=== PATIENT | female | born 1945 | race African-American/Black ===

== ENCOUNTER → 2021-06-04 | Outpatient (CLI) | payer MEDICARE ==
[2019-09-29 20:50] VITALS: BP 154/66
[~2021-06-04] MED LIST: AMLO-186 PO; AMLO-187 PO; BENA40TA3 PO; CETI10TA16 PO; ENOX100D3 SQ; FAMO20TA5 PO; GABA300C18 PO; IBUP-1027 PO; IBUP-1060 PO; INSU100V8 SQ; METF10007 PO; MONT10TA49 PO; ORPH100T PO; PRAV20TA2 PO; TIZA2CAP PO; WARF2TAB96 PO
--- NOTE | 2021-06-06 10:12 | CARD ---
MR#: [id number] Date of Study: 06/04/2021 Ordering Physician: JOHN NASH, Referring Physician: JOHN NASH, Tech: Arnold Hernandez [facility] APPROVED REPORT EXAM: Two-dimensional and M-mode echocardiogram with Doppler and color Doppler. Other Information Quality : FairHR: 73bpm Rhythm : NSR INDICATION Murmur RISK FACTORS Previous DVT and PE (Remote) 2D DIMENSIONS Left Atrium(2D)4.2 (1.6-4.0cm)IVSd1.3 (0.7-1.1cm) Aortic Root(2D)2.6 (2.0-3.7cm)LVDd4.2 (3.9-5.9cm) LVOT Diameter2.1 (1.8-2.4cm)PWd1.3 (0.7-1.1cm) LVDs2.3 (2.5-4.0cm)FS (%) 45.2 % SV59.7 mlLVEF(%)76.9 (>50%) Aortic Valve AoV Peak Avinash.180.2cm/sAoV VTI30.7cm AO Peak GR.13.0mmHgLVOT Peak Avinash.125.3cm/s AO Mean GR.6mmHgAVA (VMAX)2.43cm2 Mitral Valve MV E Cwkcpqna40.7cm/sMV E Peak Gr.5mmHg MV DECEL [id number] A Dxwxzxnk770.4cm/s MV E Mean Gr.1mmHgE/A Ratio0.6 Pulmonary Valve PV Peak Kdfzhxjd263.1cm/s Tricuspid Valve TR P. Evzdgiur584dr/sTR Peak Gr.32mmHg Pulmonary Vein S1 Mydbiccf88.6cm/sD2 Myyiptyx22.8cm/s LEFT VENTRICLE The left ventricle is normal size. There is mild concentric left ventricular hypertrophy. The left ve ntricular systolic function is normal and the ejection fraction is within normal range. EF 55% There is normal LV segmental wall motion. Transmitral Doppler flow pattern is Grade I-abnormal relaxation p attern. No left ventricle thrombus noted on this study. There is no ventricular septal defect visuali zed. There is no left ventricular aneurysm. There is no mass noted in the left ventricle. RIGHT VENTRICLE The right ventricle is normal size. There is normal right ventricular wall thickness. The right ventr icular systolic function is normal. ATRIA The left atrium is borderline dilated. The right atrium size is normal. The interatrial septum is int act with no evidence for an atrial septal defect or patent foramen ovale as noted on 2-D or Doppler i maging. AORTIC VALVE The aortic valve is normal in structure and function. Doppler and Color Flow revealed no significant aortic regurgitation. There is no significant aortic valvular stenosis. There is no aortic valvular v egetation. MITRAL VALVE The mitral valve is normal in structure and function. There is no evidence of mitral valve prolapse. There is no mitral valve stenosis. Doppler and Color Flow revealed no mitral valve regurgitation note d. TRICUSPID VALVE The tricuspid valve is normal in structure and function. Doppler and Color Flow revealed mild tricusp id regurgitation. The PA pressure was estimated at 37 mmHg. There is no tricuspid valve prolapse or v egetation. There is no tricuspid valve stenosis. PULMONIC VALVE Doppler and Color Flow revealed no pulmonic valvular regurgitation. There is no pulmonic valvular chrystal nosis. GREAT VESSELS The aortic root is normal in size. The ascending aorta is normal in size. The IVC is normal in size a nd collapses >50% with inspiration. PERICARDIAL EFFUSION There is no pleural effusion. There is no evidence of significant pericardial effusion. Critical Notification Critical Value: No <Conclusion> The left ventricular systolic function is normal and the ejection fraction is within normal range. EF 55% There is normal LV segmental wall motion. Doppler and Color Flow revealed mild tricuspid regurgitation. The PA pressure was estimated at 37 mmH g. Signed by : Rodrigue Drake, Electronically Approved : 06/06/2021 10:12:33
== END ==
LOC: ECHO 15:25
PROVIDERS: ATTEND Internal Medicine Cardiovascular Disease
DX: I36.1 Nonrheumatic tricuspid (valve) insufficiency (principal); R01.1 Cardiac murmur, unspecified; Z86.718 Personal history of other venous thrombosis and embolism
CPT/HCPCS: 93306

== ENCOUNTER → 2021-06-04 | Outpatient (CLI) | payer MEDICARE ==
[2019-09-29 20:50] VITALS: BP 154/66
--- NOTE | 2021-06-06 10:02 | RAD ---
MR#: [id number] Date of Study: 06/04/2021 Ordering Physician: JOHN NASH, Referring Physician: JOHN NASH, Tech: Rafa Vaca MBA, RDMS, RVT, RDCS, RTR APPROVED REPORT Patient Location : OUT-PATIENT Indications Lower Extremity Edema : Bilateral Findings Limited grayscale images of the saphenofemoral junctions are grossly unremarkable. The right great saphenous vein measures 6.6 mm and the left great saphenous vein measures 6.3 mm. Bilateral greater and lesser saphenous veins do not show any evidence of reflux. Critical Notification Critical Value: No <Conclusion> 1. No significantly reflux in the bilateral lower extremities Signed by : Rodrigue Drake, Electronically Approved : 06/06/2021 10:01:54
--- NOTE | 2021-06-06 10:04 | RAD ---
MR#: [id number] Date of Study: 06/04/2021 Ordering Physician: JOHN NASH, Referring Physician: JOHN NASH, Tech: Rafa Vaca MBA, RDMS, RVT, RDCS, RTR APPROVED REPORT Bilateral Lower Extremity Venous Study for DVT Patient Location: OUT-PATIENT Indications Lower Extremity Edema: Bilateral Vein Imaging (Right) CFV (R): Compressible SFJ (R): Compressible FEM (R): Compressible POP (R): Compressible DFV (R): Compressible PTV (R): Spontaneous GSV (R): Spontaneous Peroneals (R): Spontaneous Vein Imaging (Left) CFV (L): Compressible SFJ (L): Compressible FEM (L): Compressible POP (L): Compressible DFV (L): Compressible PTV (L): Spontaneous GSV (L): Spontaneous Peroneals (L): Spontaneous Doppler Evaluation (Right) CFV (R): Spontaneous POP (R):Spontaneous Doppler Evaluation (Left) CFV (L):Spontaneous POP (L):Spontaneous Findings Grossly no clear evidence of deep vein thrombosis is evident but this was a technically very difficul t study. The bilateral common femoral veins appear to be fully compressible with normal spectral waveforms and color Doppler flow. The left superficial femoral vein and popliteal vein appear to be compressible with normal spectral w aveforms and color Doppler flow. The right superficial vein and popliteal vein were not well visualized on grayscale images. Spontane ous flow and normal color Doppler imaging and spectral waveforms are noted in these veins however. Below the knee bilateral veins were not well visualized but spontaneous flow is noted on color Dopple r imaging. Critical Notification Critical Value: No <Conclusion> 1. Technically difficult study as described above but grossly no evidence of DVT in the bilateral lo wer extremities Signed by : Rodrigue Drake, Electronically Approved : 06/06/2021 10:04:09
--- NOTE | 2021-06-06 10:08 | RAD ---
MR#: [id number] Date of Study: 06/04/2021 Ordering Physician: JOHN NASH, Referring Physician: JOHN NASH, Tech: Rafa Vaca, LEFTY, RDMS, RVT, RDCS, RTR APPROVED REPORT Patient Location: OUT-PATIENT Indications Claudication:Bilaterally VELOCITY AND DOPPLER WAVEFORM ANALYSIS RIGHT cm/secWaveformSeverity LEFT cm/secWaveform Severity dCFA 157.0TriphasicdCFA 132.0Triphasic Prof Fem Art. 99.0BiphasicProf Fem Art. 75.0Biphasic Fem Art Prox. 174.0TriphasicFem Art Prox. 137.0Triphasic Fem Art Mid. 110.0TriphasicFem Art Mid. 121.0Triphasic Fem Art Dist. 103.0TriphasicFem Art Dist. 101.0Triphasic Pop Art(Fossa) 66.0TriphasicPop Art([place]) 71.0Triphasic [employer] Prox. 47.0TriphasicPTA Prox. 131.0Triphasic LI[employer] AS[employer]ER Dist. 94.0TriphasicPTA Dist. 109.0Triphasic KARLEE Prox. 95.0TriphasicATA Prox. 100.0Triphasic DPA 64TriphasicDPA 99Triphasic Findings Grayscale images of the bilateral lower extremity arterial vessels demonstrate mild diffuse atheroscl erosis. There is is overall less than 50% stenosis in the bilateral lower extremity arterial vessels with mostly triphasic and biphasic waveforms. The bilateral peroneal arteries were not well visuali zed. Otherwise there is two-vessel runoff. Critical Notification Critical Value: No <Conclusion> 1. No significant lower extremity arterial disease bilaterally with two-vessel runoff. Peroneal art eries were not visualized. Signed by : Rodrigue Drake, Electronically Approved : 06/06/2021 10:08:02
== END ==
LOC: US 13:54
PROVIDERS: ATTEND Internal Medicine Cardiovascular Disease
DX: I70.293 Other atherosclerosis of native arteries of extremities, bilateral legs (principal); R60.0 Localized edema
CPT/HCPCS: 93925; 93970